=== PATIENT | female | born 1945 | race African-American/Black ===

== ENCOUNTER 2017-10-09 09:24 | Inpatient (IN) | payer MEDICARE, OTHER ==
[~2017-10-09] VITALS: Ht 165.1 cm; Wt 69.9 kg
[2017-10-09] MEDS ORDERED: MORPHINE SULFATE 4 MG/ML CPJ (NOT FOR IM USE) IV STA (10:16)
[2017-10-09] MEDS ORDERED: ONDANSETRON HCL 4MG/2ML VIAL IV STA (10:16)
[2017-10-09] MEDS ORDERED: SODIUM CHLORIDE 0.9% 500 ML IV ONE (10:16)
[2017-10-09 10:56] LABS: BASOPHILS % 0.7 % (0.0-2.0); EOSINOPHILS % 0.6 % (0.0-5.0); HEMOGLOBIN. 9.8 g/dL (12.0-16.0); LYMPHOCYTES % 10.6 % (20.0-50.0); MEAN CORPUSCULAR HEMOGLOBIN 27.6 pg (28.0-32.0); MEAN CORPUSCULAR VOLUME 84.5 fL (81.0-99.0); MEAN PLATELET VOLUME 10.4 fl (7.4-10.4); MONOCYTES % 7.5 % (2.0-8.0); NEUTROPHILS % 80.6 % (40.0-76.0); PLATELET 67 x1000/uL (130-400); RED BLOOD CELL COUNT 3.55 mill/uL (4.2-5.4); RED CELL DISTRIBUTION WIDTH 15.1 % (11.6-14.6)
[2017-10-09 11:02] LABS: CHLORIDE 93 mEq/L (98-107)
[2017-10-09 11:04] LABS: INR 1.1
[2017-10-09 11:10] LABS: CARBON DIOXIDE 32 mEq/L (21-32)
[2017-10-09] MEDS ORDERED: IOHEXOL-300 100 ML BOTTLE ONE (13:18)
[2017-10-09 13:33] LABS: CLARITY URINE CLOUDY (CLEAR); COLOR URINE YELLOW (YELLOW); KETONES URINE NEGATIVE (NEGATIVE); LEUKOCYTE ESTERASE URINE 3+ (NEGATIVE); NITRITE URINE NEGATIVE (NEGATIVE); OCCULT BLOOD URINE 2+ (NEGATIVE); PROTEIN URINE TRACE (NEGATIVE); SPECIFIC GRAVITY URINE 1.014 (1.005-1.030); UROBILINOGEN URINE 0.2 E.U./dL (0.2-1.0)
[2017-10-09] MEDS ORDERED: ONDANSETRON HCL 4MG/2ML VIAL IV ONE (15:30)
[2017-10-09] MEDS ORDERED: MORPHINE SULFATE 4 MG/ML CPJ (NOT FOR IM USE) IV ONE (15:30)
[2017-10-09] MEDS ORDERED: CEFTRIAXONE 1 G PREMIX 50 ML IV NR (15:45)
[2017-10-09] MEDS ORDERED: PANTOPRAZOLE SODIUM 40 MG/VIAL IV NR (16:15)
[2017-10-09] MEDS ORDERED: IPRATROPIUM/ALBUTEROL 0.5-3(2.5)MG/3ML NEB ONE (20:31)
[2017-10-09] MEDS ORDERED: IPRATROPIUM/ALBUTEROL 0.5-3(2.5)MG/3ML NEB HHN ONE (20:45)
[2017-10-09 22:45] VITALS: BP 110/57
[2017-10-09] MEDS ORDERED: ONDANSETRON HCL 4MG/2ML VIAL IV PRN (23:45)
[2017-10-09] MEDS ORDERED: SODIUM CHLORIDE 0.9% 1,000 ML IV SCH (23:45)
[2017-10-10] MEDS ORDERED: ACETAMINOPHEN 325MG TABLET PO PRN
[2017-10-10 01:50] VITALS: BP_SYST 89; BP_SYST 90; BP_DIAS 47; BP_DIAS 50
[2017-10-10] MEDS: SODIUM CHLORIDE 0.9% 1,000 ML IV SCH ×2 (02:52→15:12)
[2017-10-10] MEDS: LEVOFLOXACIN 500MG PREMIX 100 ML IV SCH (02:52)
[2017-10-10 04:00] VITALS: BP 90/47
[2017-10-10] MEDS: OMEPRAZOLE 20MG CAPSULE EXTENDED RELEASE PO SCH (06:58)
[2017-10-10] MEDS: MORPHINE SULFATE 4 MG/ML CPJ (NOT FOR IM USE) IV PRN ×3 (06:59→17:57)
[2017-10-10 07:39] VITALS: BP 109/47
[2017-10-10] MEDS ORDERED: PNEUMOCOCCAL 23-VAL P-SAC VAC 0.5 ML IM ONE (12:00)
[2017-10-10] MEDS: DOCUSATE SODIUM 100MG CAPSULE PO SCH (17:57)
[2017-10-10 20:00] VITALS: BP 102/61
[2017-10-10] MEDS ORDERED: ZOLPIDEM TARTRATE 5MG TABLET PO PRN (21:00)
[2017-10-11] VITALS: BP 112/63
[2017-10-11] MEDS: LEVOFLOXACIN 500MG PREMIX 100 ML IV SCH (00:41)
[2017-10-11 04:00] VITALS: BP 163/57
[2017-10-11] MEDS: OMEPRAZOLE 20MG CAPSULE EXTENDED RELEASE PO SCH (07:15)
[2017-10-11] MEDS: SODIUM CHLORIDE 0.9% 1,000 ML IV SCH (07:16)
[2017-10-11 08:30] VITALS: BP 104/60
[2017-10-11] MEDS: DOCUSATE SODIUM 100MG CAPSULE PO SCH (09:00)
[2017-10-11] MEDS ORDERED: DOCU-150 PO (10:41)
[2017-10-11] MEDS ORDERED: HYDR-4001 PO (10:41)
[2017-10-11] MEDS ORDERED: METO-293 PO (10:41)
[2017-10-11 12:00] VITALS: BP 100/66
[2017-10-11 12:30] VITALS: BP 100/66
== END 2017-10-11 13:30 | disposition home or self-care (01) | DRG 871 ==
LOC: ER 09:37 → 6EST 16:19 → ENRESERV 21:27 → EDBEDREQ 21:50 → 5WST 10-10 01:43
PROVIDERS: ADMIT Internal Medicine; ATTEND Internal Medicine
DX: A41.9 Sepsis, unspecified organism (principal); E43 Unspecified severe protein-calorie malnutrition; D69.6 Thrombocytopenia, unspecified; D64.9 Anemia, unspecified; C18.9 Malignant neoplasm of colon, unspecified; E11.9 Type 2 diabetes mellitus without complications; R13.10 Dysphagia, unspecified; N39.0 Urinary tract infection, site not specified; M06.9 Rheumatoid arthritis, unspecified; I10 Essential (primary) hypertension; J45.909 Unspecified asthma, uncomplicated; K22.9 Disease of esophagus, unspecified; M19.90 Unspecified osteoarthritis, unspecified site; Z68.25 Body mass index [BMI] 25.0-25.9, adult
CPT/HCPCS: 36415; 74177; 80053; 81001; 83690; 85025; 85610; 87040; 87086; 90732; 92610; 93970; 94640; 96361; 96365; 96375; 96376; 99285; C9113; J0696; J1956; J2270; J2405; J7030; J7620; Q9967